=== PATIENT | male | born 1990 | race Caucasian/White ===

== ENCOUNTER 2018-01-07 03:16 | Emergency (ER) | payer SELFPAY ==
[2018-01-07 03:56] LABS: #Lymphocytes 0.7 thou/uL (1.20-3.40); #Monocytes 0.4 thou/uL (0.11-0.59); #Neutrophils 11.9 thou/uL (1.40-6.50); %Basophils 0.1 % (0.0-1.0); %Eosinophils 0.2 % (0.0-10.0); %Lymphocytes 5.6 % (21.0-51.0); %Monocytes 3.1 % (0.0-10.0); %Neutrophils 91.1 % (42.0-75.0); Hemoglobin 14.9 g/dL (14.0-18.0); Mean Corpuscular HGB CONC 34.3 g/dL (32.0-36.0); Mean Corpuscular Hemoglobin 30.6 pg (27.0-31.0); Mean Platelet Volume 6.9 fL (7.4-10.4); Platelet Count 192 thou/uL (130-400); Red Blood Cell (RBC) Count 4.88 mill/uL (4.70-6.10)
[2018-01-07 04:17] LABS: Alcohol Less than 10 mg/dL (Less than 10); Anion Gap 13 mmol/L (10-20); BUN (Urea Nitrogen) 17 mg/dL (8.9-20.6); Calc. Creatinine Clearance 0 mL/min (70-130); Calcium 9.9 mg/dL (7.8-10.44); Carbon Dioxide 27 mmol/L (22-29); Chloride 100 mmol/L (98-107); Estimated GFR-MDRD 87; Glucose 111 mg/dL (70-105); Sodium 136 mmol/L (136-145)
== END 2018-01-07 04:31 | disposition home or self-care (01) ==
LOC: ERS 03:16
DX: R07.89 Other chest pain (principal); M54.9 Dorsalgia, unspecified; T42.4X5A Adverse effect of benzodiazepines, initial encounter; T40.2X5A Adverse effect of other opioids, initial encounter; G89.29 Other chronic pain; F41.9 Anxiety disorder, unspecified; I10 Essential (primary) hypertension; Z79.899 Other long term (current) drug therapy
CPT/HCPCS: 36415; 80048; 80307; 85025; 99283

== ENCOUNTER 2018-06-03 14:52 | Inpatient (IN) | payer SELFPAY ==
[~2018-06-03 14:52] MED LIST: ISOVUE-370 76%-LOCM 1 ML ONE
[2018-06-03] MEDS ORDERED: Ibuprofen 200 MG TAB ONE (15:16)
[2018-06-03 15:22] LABS: Hemoglobin 13.7 g/dL (14.0-18.0); Mean Corpuscular HGB CONC 34.3 g/dL (32.0-36.0); Mean Corpuscular Volume 90.3 fL (78.0-98.0); Mean Platelet Volume 7.7 fL (7.4-10.4); Platelet Count 202 thou/uL (130-400); RBC Distribution Width 11.8 % (11.5-14.5); White Blood Cell (WBC) Count 16.9 thou/uL (4.8-10.8)
[2018-06-03 15:45] LABS: Acetaminophen Less than 6.0 mcg/mL (10.0-30.0); Alcohol Less than 10 mg/dL (Less than 10); Salicylate Less than 8.0 mg/dL (15.0-30.0)
[2018-06-03 15:46] LABS: ALT (SGPT) 66 U/L (8-55); AST (SGOT) 130 U/L (5-34); Albumin 3.9 g/dL (3.5-5.0); Alkaline Phosphatase 54 U/L (40-150); Anion Gap 16 mmol/L (10-20); BUN (Urea Nitrogen) 12 mg/dL (8.9-20.6); Bilirubin, Total 1.1 mg/dL (0.2-1.2); Calc. Creatinine Clearance 0 mL/min (70-130); Calcium 9.1 mg/dL (7.8-10.44); Carbon Dioxide 28 mmol/L (22-29); Chloride 96 mmol/L (98-107); Estimated GFR-MDRD 86; Glucose 193 mg/dL (70-105); Potassium 4.3 mmol/L (3.5-5.1); Protein, Total 6.9 g/dL (6.0-8.3); Sodium 136 mmol/L (136-145)
--- NOTE | 2018-06-03 15:54 | RAD ---
RADIOGRAPH CHEST 1 VIEW: Date: 06/03/18 Time: 2:46 p.m. HISTORY: 27-year-old male with fever. COMPARISON: None. FINDINGS: There are extensive air space densities throughout most of right lung, with relative sparring of the apex. The left lung is clear. The cardiomediastinal silhouette is normal. No pneumothorax. IMPRESSION: Extensive right sided pneumonia. MEAGAN [] POS: KVNG
[2018-06-03 15:55] LABS: Band 22 % (5-11); Lymphocytes 1 % (21-51); MDiff Complete? YES; Monocytes 1 % (0-10); Neutrophil 76 % (42-75); PLT Morphology Comment Appears Adequate
[2018-06-03 15:58] LABS: CK (CPK) 6150 U/L (30-200)
--- NOTE | 2018-06-03 16:09 | CT ---
CT OF HEAD NONCONTRAST 06/03/18 INDICATION: Altered mental status. FINDINGS: There is normal sized ventricular system, without evidence of intracranial hemorrhage, mass effect or midline shift. Motion artifact is present which does limit the assessment. No acute fluid level of t he imaged paranasal sinuses. IMPRESSION: No acute intracranial abnormalities visualized. POS: ARDEN
[2018-06-03] MEDS ORDERED: cefTRIAXone\\ROCEPHIN 2 GM VIAL ONE (16:20)
[2018-06-03 16:37] LABS: Actual Bicarbonate (HCO3a) 29.3 mEq/L (22-28); Base Excess (BEa) 3.3 mEq/L (-2.0 to +3.0); CO2 Tension 50.9 mmHg (35.0-45.0); Hematocrit-ABG 37.4 % (42.0-52.0); Hemoglobin (Hb) 11.9 g/dL (14.0-18.0); O2 Tension (PaO2) 59.9 mmHg (80.0-100.0); pH, Arterial 7.38 (7.35-7.45)
[2018-06-03 16:38] LABS: ALV-art Gradient 76.115 (0-20); Analyzer IN Cardio ER; Calcium, Ionized 1.1 mmol/L (1.12-1.30); Puncture Site L.B.
[2018-06-03 17:16] LABS: Color Of CSF Supernatant COLORLESS (Colorless); Tube # 2; Unspun CSF Color COLORLESS (Colorless)
[2018-06-03 17:24] LABS: CSF Source CSF; Clarity Clear (Clear); Tube # 1
[2018-06-03 17:25] LABS: CSF Source CSF; Clarity Clear (Clear); RBC Count - Manual 2 /cumm (None Seen); RBC Count - Manual 25 /cumm (None Seen); Tube # 4; WBC/NonHematics Count - Manual 2 /cumm (0-5)
[2018-06-03 17:32] LABS: CSF, Glucose 116 mg/dl (40-70); CSF, Protein 28 mg/dL (15-40)
[2018-06-03 19:15] LABS: Lactic Acid 0.8 mmol/L (0.5-2.2)
[2018-06-03 20:07] LABS: Bilirubin Negative (Negative); Blood, Urine Trace (Negative); Clarity CLEAR (Clear); Glucose, Urine (Dipstick) Negative (Negative); Leukocyte Negative (Negative); Nitrite Negative (Negative); Protein, Urine (Dipstick) Trace mg/dL (Neg-Trace); Specific Gravity, Urine 1.019 (1.002-1.036)
[2018-06-03 20:11] LABS: Bacteria/HPF None Seen HPF (None Seen); Hyaline Casts/LPF 0-3 HYALINE CAST LPF (0-3 Hyaline); RBC/HPF None Seen HPF (0-3); Squamous Epithelial None Seen HPF (0-3); WBC/HPF None Seen HPF (0-3)
--- NOTE | 2018-06-03 20:18 | CT ---
CT THORAX WITH CONTRAST: 06/03/18 at 7:58 p.m. HISTORY: 27-year-old male with cough and fever. COMPARISON: None. TECHNIQUE: IV iodinated contrast media: Administered. FINDINGS: Multifocal air space densities throughout much of the right upper lobe, some of the right lower lobe, and some of the right middle lobe. Some of the infiltrates are confluent into early consolidation. O thers are nodular infiltrates. The trachea and major bronchi are patent and clear. The left lung is clear. There is no pleural effus ion or pneumothorax. Mildly to moderately enlarged right hilar lymph nodes. No mediastinal lymphadeno kalani. Normal thoracic aorta. No cardiomegaly or pericardial effusion. IMPRESSION: Extensive right sided pneumonia, worst in the right upper lobe, followed by right lower lobe and righ t middle lobe. MEAGAN Bellamy POS: JIN
[2018-06-03 20:19] LABS: Amphetamine Not Detected (NotDetected); Barbiturates Screen Not Detected (NotDetected); Benzodiazepine Screen Detected (NotDetected); Cocaine Metabolite Screen Not Detected (NotDetected); Medtox Control Line Valid? VALID (VALID); Medtox Reader # READER 1; Methadone Detected (NotDetected); Methamphetamine Not Detected (NotDetected); Opiate Screen Not Detected (NotDetected); Oxycodone Screen Detected (NotDetected); Phencyclidine (PCP) Not Detected (NotDetected); THC/Cannabinoid Screen Not Detected (NotDetected); Tricyclic Screen Not Detected (NotDetected)
[2018-06-03] MEDS ORDERED: Ondansetron ODT 4 MG TAB PO PRN (20:49)
[2018-06-03] MEDS ORDERED: Mag-Al 1200 mg/1200 mg/30 ML UDCUP PO PRN (20:49)
[2018-06-03] MEDS ORDERED: Calcium Carbonate 500 MG ChewTAB PO PRN (20:49)
[2018-06-03] MEDS ORDERED: Ondansetron HCl/PF 4 MG/2 ML Vial IVP PRN (20:49)
[2018-06-03] MEDS ORDERED: Acetaminophen 325 MG TAB PO PRN (20:49)
[2018-06-03] MEDS ORDERED: Senokot 8.6 MG TAB PO PRN (20:49)
[2018-06-03] MEDS ORDERED: Lorazepam 2 MG/ML VIAL SLOW IVP PRN (20:56)
[2018-06-03 20:57] VITALS: BMI 22.1
--- NOTE | 2018-06-03 21:05 | HP ---
DATE OF ADMISSION: 06/03/2018 PRIMARY CARE PHYSICIAN: Aurora bell. CHIEF COMPLAINT: Altered mentation. HISTORY OF PRESENT ILLNESS: Patient is a 27-year-old white male with chronic pain syndrome, anxiety and history of drug abuse in the past, was brought in to the hospital with altered mentation. Histor y obtained from the mother at the bedside. The patient was brought into the emergency room with altered mentation along with generalized fatigue and cough that has been going on for a week or so. He also has fever over the last one week. The p atient had complained of some headache earlier. There is also some questionable history that he had fallen. Again, not much information is available from the patient. In the emergency room, his initial vital signs showed temperature 102.6, respirations 16, pulse rate of 127 with a blood pressure of 127/84 with O2 saturation 85% on room air. His chest x-ray showed ri ght-sided infiltrate. CT of the brain was negative. He received Levaquin, ampicillin, vancomycin, c eftriaxone, ibuprofen, and 2 liter IV fluid. He underwent lumbar puncture to rule out meningitis. P er ER note, the patient's mother who lives in [facility] called the police for a welfare check on the patient. The patient took a long time to unlock the door for the police. Police report ed altered mentation. He was brought in to the emergency room after this. PAST MEDICAL HISTORY: From review of record, 1. Chronic pain syndrome. 2. Anxiety. 3. History of drug abuse. PAST SURGICAL HISTORY: Reviewed with the mother and none. ALLERGIES: PENICILLIN. SOCIAL HISTORY: Patient is a student. No current use of tobacco, alcohol or drug use per family. FAMILY HISTORY: Negative for heart disease. REVIEW OF SYSTEMS: Cannot be obtained from the patient due to current cognitive status. CURRENT HOME MEDICATIONS: Patient has bottles of clonazepam and buprenorphine at the bedside. Detai ls unavailable. PHYSICAL EXAMINATION: VITAL SIGNS: As discussed above. GENERAL: A 27-year-old male with altered mentation. HEENT: Head atraumatic, normocephalic. Sclerae are anicteric. Dry mucous membranes. No oral lesio n. NECK: Supple, no JVD, no carotid bruit. LUNGS: Showed diffuse rhonchi and rales on the right. No significant accessory muscle use. Mild wh eezing noted on the left. HEART: S1, S2 present. Tachycardic, no murmur, rubs or gallops. ABDOMEN: Soft, nontender, bowel sounds present. EXTREMITIES: No edema or calf tenderness. There is some erythema over his right foot. NEUROLOGIC/PSYCHIATRIC: Could not be reliably done due to current patient's mentation. Patient is w aking up and is somewhat agitated, trying to get out of the bed. SKIN: Warm and dry. LYMPH NODES: No palpable lymph nodes in the neck. PERIPHERAL VASCULAR: Radial pulses palpable bilaterally. MUSCULOSKELETAL: No joint swelling or tenderness. LABORATORY FINDINGS: CBC showed WBC 16.9 with hemoglobin 13.7, hematocrit 39.8, platelet of 202. AB G showed pH 7.38 with pCO2 of 51, pO2 of 59.9 with bicarbonate 29. CK was 6150. CRP 12.4. ESR was 25. TSH 0.3. Lactic acid 3.2, repeat lactic acid 0.8, creatinine 1.03. CSF findings showed 2-25 RB Cs. The CSF was colorless. CSF protein was normal. Urinalysis was negative for wbc, bacteria. Uri ne drug screen positive for oxycodone, methadone and benzodiazepines. CSF Gram stain was negative fo r WBC or bacteria. IMAGING: Chest x-ray by my review as discussed above. CT scan of the brain by my review was negativ e. Telemetry monitoring by my review showed sinus tachycardia. CT scan of the chest showed extensiv e right-sided pneumonia, worse in the right upper lobe followed by the right lower lobe and right mid dle lobe. IMPRESSION: 1. Acute hypoxic and hypercapnic respiratory failure due to extensive right-sided pneumonia, suspect ed aspiration pneumonia. 2. Toxic metabolic encephalopathy probably secondary to drug abuse. 3. Chronic pain syndrome, currently on buprenorphine. 4. Anxiety, on clonazepam. 5. Rhabdomyolysis. 6. Lactic acidosis. 7. Abnormal liver function tests, probably secondary to sepsis. 8. Mild chronic anemia. PLAN: The patient will be monitored in the Intermediate Care Unit. Patient is allergic to PENICILLI N per family report. We will continue vancomycin. We will start him on Levaquin and clindamycin. C ontinuous pulse oximetry. Frequent neuro checks. Nebulizer treatment. Consult Critical Care. A.m. labs. IV hydration. We will repeat CK in a.m. Plan of care was discussed with the mother in detail. She stated understanding.
[2018-06-03] MEDS: Famotidine 20 MG TAB PO SCH (22:17)
[2018-06-03] MEDS: Sodium Chloride 0.9% 1,000 ML IV SCH (22:17)
[2018-06-03] MEDS: Clindamycin/D5W 600 MG in Premix Bag 1 BAG IVPB SCH (22:18)
[2018-06-03] MEDS: Vancomycin HCl 1 GM in Premix Bag 1 BAG IVPB SCH (23:20)
[2018-06-04] MEDS ORDERED: METHadone HCl 10 MG TAB PO SCH (02:30)
[2018-06-04] MEDS: Sodium Chloride 0.9% 1,000 ML IV SCH ×3 (03:01→12:26)
[2018-06-04 04:10] LABS: #Lymphocytes 0.9 thou/uL (1.20-3.40); #Monocytes 0.6 thou/uL (0.11-0.59); #Neutrophils 7.8 thou/uL (1.40-6.50); %Basophils 0.1 % (0.0-1.0); %Eosinophils 0.2 % (0.0-10.0); %Lymphocytes 9.7 % (21.0-51.0); %Neutrophils 84.1 % (42.0-75.0); Hemoglobin 11.2 g/dL (14.0-18.0); Mean Corpuscular HGB CONC 34.2 g/dL (32.0-36.0); Mean Corpuscular Hemoglobin 31.3 pg (27.0-31.0); Mean Corpuscular Volume 91.4 fL (78.0-98.0); Mean Platelet Volume 7.8 fL (7.4-10.4); Platelet Count 160 thou/uL (130-400); RBC Distribution Width 11.7 % (11.5-14.5); Red Blood Cell (RBC) Count 3.58 mill/uL (4.70-6.10); White Blood Cell (WBC) Count 9.2 thou/uL (4.8-10.8)
[2018-06-04 04:40] LABS: ALT (SGPT) 67 U/L (8-55); AST (SGOT) 145 U/L (5-34); Albumin 3.1 g/dL (3.5-5.0); Alkaline Phosphatase 46 U/L (40-150); Anion Gap 9 mmol/L (10-20); BUN (Urea Nitrogen) 9 mg/dL (8.9-20.6); Bilirubin, Total 0.7 mg/dL (0.2-1.2); Calc. Creatinine Clearance 140 mL/min (70-130); Calcium 8.1 mg/dL (7.8-10.44); Carbon Dioxide 28 mmol/L (22-29); Chloride 104 mmol/L (98-107); Estimated GFR-MDRD Greater than 90; Globulin 2.3 g/dL (2.4-3.5); Glucose 99 mg/dL (70-105); Magnesium 1.9 mg/dL (1.6-2.6); Potassium 4.1 mmol/L (3.5-5.1); Protein, Total 5.4 g/dL (6.0-8.3); Sodium 137 mmol/L (136-145)
[2018-06-04 04:52] LABS: CK (CPK) 6379 U/L (30-200)
[2018-06-04] MEDS: Clindamycin/D5W 600 MG in Premix Bag 1 BAG IVPB SCH ×2 (05:27→14:18)
[2018-06-04] MEDS: Vancomycin HCl 1 GM in Premix Bag 1 BAG IVPB SCH (08:14)
[2018-06-04] MEDS: Famotidine 20 MG TAB PO SCH (08:25)
[2018-06-04] MEDS ORDERED: Enoxaparin Sodium 30 MG/0.3 ML SYRINGE SC SCH (09:00)
[2018-06-04] MEDS ORDERED: Saccharomyces boulardii 250 MG CAP PO SCH (09:00)
--- NOTE | 2018-06-04 15:23 | PDOC.PN ---
- Subjective Encounter Start Date: 06/04/18 Encounter Start Time: 11:00 Patient seen and examined for Sepsis. Feels better. Mentation improving. Still somnolent with intermittent agitation. No new complaints. No overnight events - Objective Resuscitation Status: Resuscitation Status FULL:Full Resuscitation MAR Reviewed: Yes Vital Signs & Weight: Vital Signs (12 hours) Temp Pulse Resp BP Pulse Ox 06/04/18 11:12 98.4 F 85 16 121/62 95 06/04/18 10:22 84 20 96 06/04/18 07:45 81 20 97 06/04/18 07:37 92 L 06/04/18 07:18 98.1 F 77 19 92 L 06/04/18 07:13 98.1 F 77 19 108/65 92 L 06/04/18 04:00 97.9 F 73 18 117/73 96 Weight Weight 137 lb I&O: 06/03/18 06/04/18 06/05/18 06:59 06:59 06:59 Intake Total 2109 480 Output Total 275 Balance 1834 480 Result Diagrams: 06/04/18 03:55 06/04/18 03:55 EKG Reviewed by me: Yes (Tele SR) Phys Exam - Physical Examination Constitutional: NAD Neck: no JVD Respiratory: no wheezing Rt sided rales/rhonchi, No significant accessory muscle use Cardiovascular: RRR, no significant murmur, no rub no heaves/pulsations Gastrointestinal: soft, non-tender, no distention, positive bowel sounds Musculoskeletal: no edema, pulses present Neurological: non-focal, moves all 4 limbs Psychiatric: normal affect, A&O x 3 Dx/Plan - Plan DVT proph w/lovenox, DVT proph w/SCDs IMPRESSION: 1. Acute hypoxic and hypercapnic respiratory failure due to extensive right- sided pneumonia, suspected aspiration pneumonia. 2. Toxic metabolic encephalopathy probably secondary to drug abuse. improving 3. Chronic pain syndrome, currently on buprenorphine/Methadone. 4. Anxiety, on clonazepam. 5. Rhabdomyolysis 6. Lactic acidosis. improving 7. Abnormal liver function tests, probably secondary to sepsis. improving 8. Mild chronic anemia. PLAN: Cont Vancomycin/Levaquin/Clindamycin Cont IMCU monitoring Confirm Methadone dose in AM PRN Ativan Cont IVF at current rate AM labs including CK Microbiology 06/03/18 19:43 Urine voided Urine Culture - Preliminary NO GROWTH AT 12 HOURS 06/03/18 16:55 Spinal Fluid Culture - Pending Body Fluid Culture - Preliminary 06/03/18 15:10 Venous blood - Right Arm Blood Culture - Preliminary Specimen has been received and culture in progress. No Growth to date. 06/03/18 15:10 Venous blood - Left Arm Blood Culture - Preliminary Specimen has been received and culture in progress. No Growth to date. Laboratory Tests 06/03/18 06/04/18 15:10 03:55 AST 145 H ALT 67 H Creatine Kinase 6379 H C-Reactive Protein 12.43 H Review of Systems - Review of Systems Constitutional: negative: fever, chills, sweats, weakness, malaise, other Respiratory: Cough, Dry. negative: Shortness of Breath, Hemoptysis, SOB with Excertion, Pleuritic Pain, Sputum, Wheezing Cardiovascular: negative: chest pain, palpitations, orthopnea, paroxysmal nocturnal dyspnea, edema, light headedness, other - Medications/Allergies Allergies/Adverse Reactions: Allergies Allergy/AdvReac Type Severity Reaction Status Date / Time Penicillins Allergy Verified 06/03/18 21:04 Medications: Current Medications Acetaminophen (Tylenol) 650 mg PO Q4H PRN PRN Reason: Headache/Fever or Pain Al Hydroxide/Mg Hydroxide (Maalox) 30 ml PO Q6H PRN PRN Reason: Heartburn or Indigestion Albuterol/Ipratropium (Duoneb) 3 ml NEB [id number] [facility] Last Admin: 06/04/18 14:19 Dose: 3 ml Albuterol/Ipratropium (Duoneb) 3 ml NEB Q2H PRN PRN Reason: SOB &/or Wheezing Calcium Carbonate (Tums) 1,000 mg PO Q4H PRN PRN Reason: Heartburn or Indigestion Enoxaparin Sodium (Lovenox) 30 mg SC 0900 [facility] Last Admin: 06/04/18 08:25 Dose: Not Given Famotidine (Pepcid) 20 mg PO BID [facility] Last Admin: 06/04/18 08:25 Dose: Not Given Clindamycin Phosphate/Dextrose (600 mg/ Device) 50 mls @ 100 mls/hr IVPB Q8HR [facility] Last Admin: 06/04/18 14:18 Dose: 50 mls Sodium Chloride (Normal Saline 0.9%) 1,000 mls @ 200 mls/hr IV .Q5H [facility] Last Admin: 06/04/18 12:26 Dose: 1,000 mls Vancomycin HCl 1 gm/ Device 200 mls @ 200 mls/hr IVPB 0800,1600,2359 [facility] Last Admin: 06/04/18 08:14 Dose: 200 mls Levofloxacin 750 mg/ Device 150 mls @ 100 mls/hr IVPB 1800 [facility] Lorazepam (Ativan) 0.5 mg SLOW IVP Q4H PRN PRN Reason: Anxiety/Agitation Miscellaneous Medication (Pharmacy To Dose) 1 each IVPB ONE PRN PRN Reason: Pharmacy to dose Stop: 06/13/18 20:49 Ondansetron HCl (Zofran Odt) 4 mg PO Q6H PRN PRN Reason: Nausea/Vomiting Ondansetron HCl (Zofran) 4 mg IVP Q6H PRN PRN Reason: Nausea/Vomiting Saccharomyces Boulardii (Florastor) 250 mg PO DAILY [facility] Last Admin: 06/04/18 08:25 Dose: Not Given Senna (Senokot) 2 tab PO HSPRN PRN PRN Reason: Constipation
[2018-06-04 15:32] LABS: Vancomycin, Trough 13.1 ug/mL
[2018-06-04 15:46] VITALS: BP 120/67
[2018-06-04 15:48] VITALS: TEMP 99.2
[2018-06-04] MEDS ORDERED: Vancomycin HCl 1.25 GM in Sodium Chloride 0.9% 250 ML 250 ML IVPB SCH (16:00)
[2018-06-05] MEDS ORDERED: METHadone HCl 10 MG TAB PO SCH (06:00)
--- NOTE | 2018-06-05 07:53 | CON ---
DATE OF CONSULTATION: 06/04/2018 HISTORY OF PRESENT ILLNESS: A 27-year-old male with a long history of opiate use. He says going alpa k to high school. He says he has an opiate withdrawal program, but is on methadone. He was found down at home. He has bilateral infiltrates on her chest radiograph. He has laboratory evidence of rhabdomyolysis. His drug screen was positive for methadone, oxycodone, and benzodiazepin es. He says he was only using methadone at home. FAMILY HISTORY: Negative for lung disease . SOCIAL HISTORY: He says he does not smoke or drink. ALLERGIES: He reports a PENICILLIN allergy. REVIEW OF SYSTEMS: Ten-points otherwise negative. PHYSICAL EXAMINATION: VITAL SIGNS: Afebrile, heart rate is 85, respiratory rate 16, oximetry 95 on room air, and blood pre ssure 120/62. HEENT: Pupils are equal. Sclerae is anicteric. His conjunctiva is injected. NECK: Supple. LUNGS: Remarkable for faint crackles at his bases. CARDIOVASCULAR: Regular rhythm. S1 and S2 are normal, I do not hear a gallop. ABDOMEN: Soft and nontender. EXTREMITIES: Without clubbing, cyanosis, or edema. LABORATORY DATA: White count 9.2, was 16.9 yesterday afternoon, hemoglobin 11.2, 13.7 yesterday afte rnoon. PH 7.38, CO2 of 50, pO2 of 59 when he came in. Sodium 137, potassium 4.1, chloride 104, bica rbonate 28, BUN 9, creatinine 0.69. Drug screen was positive for oxycodone, benzodiazepines, and met hadone. IMPRESSION: 1. Multiple prescription drug overdose. 2. Aspiration pneumonia with a chemical pneumonitis as well. He looks much better than his CAT scan. He seems to think he can manage his opiates. Given that he denied being on anything but methadone, b ut has 3 prescription drugs positive on his drug screen. I doubt he can manage successfully though w ithdrawal of the high doses of opiates that he is taking. He really should be considered for inpatient rehabilitation, but this has never been done. He is extremely unlikely that he has a Staphylococcal pneumonia and the vancomycin can be discontinue d. A single drug such as Zosyn would be adequate in this setting in my opinion. Clindamycin runs the ri sk of Clostridium difficile colitis at a later date. There are no acute care issues other than to give him antibiotics and consider placement in rehabilit ation. He is very concerned that he has a class at 8:00 tomorrow morning. I have explained to him t hat if he continues with the opiate use. He obviously had issues with for the last 10 years, he prob ably will be alive in 2 years. This was truly a life threatening overdose. We will sign off and he transfers out of critical care unit.
== END 2018-06-04 16:57 | disposition left against medical advice (07) | DRG 177 ==
LOC: ERS 14:52 → IMCU/EMU 17:29
PROVIDERS: ADMIT Internal Medicine; ATTEND Internal Medicine
DX: J69.0 Pneumonitis due to inhalation of food and vomit (principal); J96.02 Acute respiratory failure with hypercapnia; J96.01 Acute respiratory failure with hypoxia; G92 Toxic encephalopathy; G89.4 Chronic pain syndrome; D64.89 Other specified anemias; T50.901A Poisoning by unspecified drugs, medicaments and biological substances, accidental (unintentional), initial encounter
CPT/HCPCS: 36415; 62270; 70450; 71045; 71260; 80053; 80202; 80306; 80307; 81003; 81015; 82550; 82805; 82945; 83605; 83735; 84157; 84443; 85025; 85652; 86140; 87040; 87070; 87086; 87205; 89051; 96360; 96361; 96365; 96367; J0696; J1956; J3370; J3490; J7050; J7620

== ENCOUNTER 2019-01-29 21:14 | Emergency (ER) | payer SELFPAY ==
[2019-01-29] MEDS ORDERED: Lorazepam 1 MG TAB ONE (22:39)
--- NOTE | 2019-01-29 22:43 | RAD ---
FExam: Portable chest Provided clinical history: Flank pain, vomiting, cough FINDINGS: Comparison 06/03/2018. Cardiac and mediastinal silhouette is within normal limits. No focal consolidati on, pleural fluid or pneumothorax evident. IMPRESSION: No evidence for an acute cardiopulmonary process.
[2019-01-29 22:51] LABS: #Basophils 0.1 thou/uL (0.0-0.2); #Eosinphils 0.4 thou/uL (0.0-0.7); #Lymphocytes 1.8 thou/uL (1.20-3.40); #Monocytes 0.4 thou/uL (0.11-0.59); #Neutrophils 2.4 thou/uL (1.40-6.50); %Basophils 1.1 % (0.0-1.0); %Eosinophils 7.3 % (0.0-10.0); %Monocytes 7.1 % (0.0-10.0); %Neutrophils 48.6 % (42.0-75.0); Mean Corpuscular Hemoglobin 30.8 pg (27.0-31.0); Mean Corpuscular Volume 90.6 fL (78.0-98.0); Platelet Count 227 thou/uL (130-400); RBC Distribution Width 11.8 % (11.5-14.5); Red Blood Cell (RBC) Count 4.23 mill/uL (4.70-6.10); White Blood Cell (WBC) Count 4.9 thou/uL (4.8-10.8)
[2019-01-29 23:19] LABS: Bilirubin Negative (Negative); Blood, Urine Negative (Negative); Clarity CLEAR (Clear); Glucose, Urine (Dipstick) Negative (Negative); Leukocyte Negative (Negative); Nitrite Negative (Negative); Protein, Urine (Dipstick) Negative (Neg-Trace); Specific Gravity, Urine 1.018 (1.002-1.036)
[2019-01-29 23:33] LABS: ALT (SGPT) 48 U/L (8-55); AST (SGOT) 30 U/L (5-34); Albumin 3.7 g/dL (3.5-5.0); Alkaline Phosphatase 111 U/L (40-150); Anion Gap 11 mmol/L (10-20); BUN (Urea Nitrogen) 4 mg/dL (8.9-20.6); Bilirubin, Total 0.2 mg/dL (0.2-1.2); Calc. Creatinine Clearance 0 mL/min (70-130); Calcium 9.1 mg/dL (7.8-10.44); Carbon Dioxide 30 mmol/L (22-29); Chloride 103 mmol/L (98-107); Estimated GFR-MDRD Greater than 90; Globulin 2.8 g/dL (2.4-3.5); Glucose 115 mg/dL (70-105); Protein, Total 6.5 g/dL (6.0-8.3); Sodium 140 mmol/L (136-145)
== END 2019-01-29 23:49 | disposition home or self-care (01) ==
LOC: ERS 21:14
DX: F41.9 Anxiety disorder, unspecified (principal); I10 Essential (primary) hypertension; F17.220 Nicotine dependence, chewing tobacco, uncomplicated
CPT/HCPCS: 36415; 71045; 80053; 81003; 85025; 93005